=== PATIENT | male | born 1990 | race Caucasian/White ===

== ENCOUNTER 2017-01-26 03:21 | Emergency (ER) | payer OTHER ==
[~2017-01-26] VITALS: Ht 175.3 cm; Wt 77.1 kg
[2017-01-26 03:36] VITALS: BP 147/82
--- NOTE | 2017-01-26 03:47 | NUR ---
AMBULATED TO ER BED 3
[2017-01-26 03:50] VITALS: BP 147/82
--- NOTE | 2017-01-26 03:50 | NUR ---
PATIENT PRESENTS TO ED WITH C/O NOT FEELING WELL . PT DENIES N/V/D; SKIN IS PINK/WARM/DRY; AAOX4 WITH EVEN AND STEADY GAIT; LUNGS CLEAR BL; HR EVEN AND REGULAR; PT DENIES ANY FEVER, CP, SOB, OR COUGH AT THIS TIME; PATIENT STATES PAIN OF 0/10 AT THIS TIME; VSS; PATIENT POSITIONED FOR COMFORT; HOB ELEVATED; BEDRAILS UP X2; BED DOWN. ER MD MADE AWARE OF PT STATUS.
[2017-01-26] MEDS ORDERED: diphenhydrAMINE 50 MG/ML VIAL IVP ONE (04:00)
[2017-01-26] MEDS ORDERED: NACL 0.9% 1,000 ML IV ONE (04:00)
--- NOTE | 2017-01-26 04:10 | NUR ---
PATIENT ELOPED FROM FACILITY. DISCHARGE INSTRUCTIONS NOT GIVEN TO PATIENT. DR. PABLO NOTIFIED.
== END 2017-01-26 04:10 | disposition left against medical advice (07) ==
LOC: MED 03:21
DX: F10.10 Alcohol abuse, uncomplicated (principal); F48.9 Nonpsychotic mental disorder, unspecified; F12.10 Cannabis abuse, uncomplicated
CPT/HCPCS: 99281

== ENCOUNTER 2020-08-23 21:06 | Emergency (ER) | payer OTHER ==
[~2020-08-23] VITALS: Ht 175.3 cm; Wt 68.0 kg
--- NOTE | 2020-08-23 21:07 | NUR ---
PT BIBA BLS. TAKEN TO BED 9
--- NOTE | 2020-08-23 21:09 | NUR ---
[facility] AT BEDSIDE
[2020-08-23 21:16] VITALS: BP 140/81
--- NOTE | 2020-08-23 21:20 | NUR ---
30 YO/M [facility] W C/O R HAND INJURY S/P PUNCHING A WALL X1 HOUR AGO AND HEARING VOICES THAT MADE HIM UPSET. PATIENT SAYS VOICES WHERE HAVING A CONVERSATION ABOUT HIM AND MADE HIM UPSET. PATIENT DENIES SUICIDAL THOUGHTS, PATIENT DENIES WANTING TO HARM OTHERS. PATIENT DENIES TAKING ANY DRUGS. PATIENT AOX4, SITTING IN BED, BREATHING EVEN AND UNLABORED, CHEST EXPANSION SYMMETRICAL. SWELLING AND ABRASIONS WITH DRIED BLOOD NOTER TO R HAND KNUCKLES. CAP REFIL <3SEC, RADIAL PULSES PRESENT +2, FULL ROM TO R HAND. NAD NOTED, WILL CONTINUE TO MONITOR. PMH: DENIES NKA
--- NOTE | 2020-08-23 21:26 | NUR ---
PT MOVED TO ER BED 6
--- NOTE | 2020-08-23 21:34 | NUR ---
X-Ray at bedside.
--- NOTE | 2020-08-23 21:38 | NUR ---
Covid and urine sample collected and walked to lab per Luis LOPEZ.
[2020-08-23 21:45] LABS: BASOPHILS # (AUTO) 0.1 K/uL (0.00-0.22); BASOPHILS % (AUTO) 0.8 % (0.0-2.0); EOSINOPHILS # (AUTO) 0.1 K/uL (0-0.4); EOSINOPHILS % (AUTO) 1.4 % (0.0-4.0); HEMATOCRIT 45.5 % (36-52); HEMOGLOBIN 15.3 g/dL (12.0-18.0); LYMPHOCYTES # (AUTO) 2.3 K/uL (2.0-11.5); LYMPHOCYTES % (AUTO) 33.1 % (20.5-51.1); MEAN CORPUSCULAR HEMOGLOBIN 30 pg (27-31); MEAN CORPUSCULAR HGB CONC 34 g/dL (33-37); MEAN CORPUSCULAR VOLUME 89.6 fL (80-94); MONOCYTES # (AUTO) 0.5 K/uL (0.8-1.0); MONOCYTES % (AUTO) 7.8 % (1.7-9.3); NEUTROPHILS # (AUTO) 3.9 K/uL (1.8-7.7); NEUTROPHILS % (AUTO) 56.9 % (42.2-75.2); PLATELET COUNT (AUTO) 399 K/uL (140-450); RED BLOOD CELL COUNT(AUTO) 5.08 MIL/uL (4.20-6.10); RED CELL DISTRIBUTION WIDTH 13.5 % (11.6-13.7); WHITE BLOOD COUNT (AUTO) 6.9 K/uL (4.8-10.8)
[2020-08-23 21:53] LABS: ANION GAP 11.3 (8-16); CARBON DIOXIDE 29.9 mmol/L (21-32); CREATININE 1.3 mg/dL (0.6-1.3); POTASSIUM 4.2 mmol/L (3.5-5.1)
[2020-08-23 22:22] LABS: BARBITURATE, URINE NEGATIVE ng/ml (NEG <=200); BENZODIAZEPINE, URINE NEGATIVE ng/mL (NEG <=200); CANNABINOID, URINE NEGATIVE ng/mL (NEG <=50); COCAINE, URINE NEGATIVE ng/mL (NEG <=300); OPIATE, URINE NEGATIVE ng/mL (NEG <=2000); PHENCYCLIDINE SCREEN,URINE NEGATIVE ng/mL (NEG <=25)
--- NOTE | 2020-08-23 22:27 | NUR ---
PT RAN OUT OF ER. [facility] [employer] NOTIFIED.
--- NOTE | 2020-08-23 22:50 | NUR ---
[facility] W/ SECURITY CHECKING TAPES - UNABLE TO LOCATE PATIENT AT THIS TIME.
--- NOTE | 2020-08-23 22:52 | NUR ---
[facility] NOTIFIED OF PATIENT TAKING OFF FROM ER.
--- NOTE | 2020-08-24 01:33 | NUR ---
called [facility] [employer] dispatch and madhu Rosas regarding update on pt whereabouts. she stated that pt is now reported as " critical missing" and is posted on [employer]. meaning that if he shows up at another hospital, any hospital will have an alert and will readily evaluate pt for a [id number] hold. as of now, pt whereabouts are unknown.
--- NOTE | 2020-08-24 01:36 | NUR ---
Mike Grimes made aware of what Perry PARISI stated to me. pt will be taken off tracker. [email or web address] @ [id number] on 08/24/20
== END 2020-08-23 22:27 | disposition left against medical advice (07) ==
LOC: MED 21:06
DX: S69.91XA Unspecified injury of right wrist, hand and finger(s), initial encounter (principal); Z02.89 Encounter for other administrative examinations; Z20.822 Contact with and (suspected) exposure to COVID-19; W22.01XA Walked into wall, initial encounter; Y93.89 Activity, other specified; Y92.89 Other specified places as the place of occurrence of the external cause; Y99.8 Other external cause status
CPT/HCPCS: 73130; 80048; 80305; 85025; 87426; 99284; G0482; U0003; 99285